=== PATIENT | female | born 1950 | race Caucasian/White ===

== ENCOUNTER 2023-08-15 18:10 | Outpatient (REF) | payer MEDICARE, BC, SELFPAY ==
--- NOTE | 2023-08-15 16:45 | SKI_PTH ---
PATIENT: Leanne Rosario LOC: [facility] U#:[id number] AGE/SX: 73/F ROOM: RE08/15/[address]: Moises Whitmore MD : [id number] BED: DIS: 08/15/2023 SPEC #: [id number] RECD: 08/15/23 18:15 STATUS: SHAINA REQ #: [id number] LUL: 08/15/23 16:[address]: Moises Whitmore DEPT: Surgical Specimen RECD BY: Zaira Guy ENTERED: 08/15/23 18:15 SP TYPE: SKI OTHR DR: Daina Ernst Tissues: 1 - SKIN BIOPSY(SHAVE/PUNCH) Procedures: GROSS AND MICRO LEVEL 4 DECALCIFICATION Comments: [id number]
== END 2023-08-15 18:11 | disposition home or self-care (01) ==
LOC: LBN 18:10
PROVIDERS: PCP Nurse Practitioner Family; Visit Provider Otolaryngology
DX: H61.891 Other specified disorders of right external ear (principal); Z85.72 Personal history of non-Hodgkin lymphomas; H81.01 Meniere's disease, right ear; H65.21 Chronic serous otitis media, right ear; D76.3 Other histiocytosis syndromes
CPT/HCPCS: 88305; 88311